=== PATIENT | female | born 1965 | race Caucasian/White ===

== ENCOUNTER 2019-04-01 20:40 | Emergency (ER) | payer OTHER ==
[~2019-04-01] VITALS: Ht 152.4 cm; Wt 63.7 kg
--- NOTE | 2019-04-01 20:54 | NUR ---
Patient brought back, pit orders placed by midlevel provider. Portable xray at bedside right now. Will assess when complete.
--- NOTE | 2019-04-01 20:58 | NUR ---
Phlebotomy at bedside, warm blanket provided. Will return on completion of lab draw.
[2019-04-01] MEDS ORDERED: ASPIRIN 81 MG TABLET CHEW PO ONE (21:00)
[2019-04-01 21:06] LABS: MEAN CORPUSCULAR HEMOGLOBIN 31.7 pg (27.0-34.8); MEAN CORPUSCULAR HGB CONC 33.8 g/dL (32.4-35.8); MEAN CORPUSCULAR VOLUME 93.7 fL (80-100); MEAN PLATELET VOLUME 8.1 fL (7.4-10.4); PLATELET COUNT 230 x10^3/uL (130-400); RED BLOOD COUNT 4.61 x10^6/uL (3.82-5.3); RED CELL DISTRIBUTION WIDTH 13.1 % (9.6-15.2)
[2019-04-01 21:07] VITALS: BP 109/77
--- NOTE | 2019-04-01 21:07 | NUR ---
RN to bedside, patient attached to pulsatile oxygen sensor, blood pressure cuff, and electrocardiagraphic leads. Vital signs within normal limits. Patient borderline sinus rhythm sinus bradycardia (59bpm) no ectopy. Patient is alert oriented. RN educated family at bedside plan of care. Awaiting lab results and chest xray results.
[2019-04-01 21:20] LABS: ALANINE AMINOTRANSFERASE 32 U/L (12-78); ALBUMIN 4.1 g/dL (3.4-5.0); ANION GAP 10 mmol/L (5-15); CALCIUM 9.2 mg/dL (8.5-10.1); CHLORIDE 107 mmol/L (98-107); CREATININE 0.93 mg/dL (0.55-1.02)
[2019-04-01 21:24] LABS: ALKALINE PHOSPHATASE 112 U/L (45-117); BILIRUBIN,TOTAL 0.5 mg/dL (0.2-1.0); TOTAL PROTEIN 7.5 g/dL (6.4-8.2); TROPONIN I < 0.015 ng/mL (0.000-0.045)
--- NOTE | 2019-04-01 21:29 | NUR ---
Patient back from imaging. Awaiting results.
[2019-04-01 21:39] LABS: MD YES
[2019-04-01 21:43] LABS: <PLATELET ESTIMATE> ADEQUATE; <PLT MORPHOLOGY> NORMAL PLT MORPH; <RBC MORPHOLOGY> NORMAL; EOS#(MANUAL) 0.07 x10^3/uL (0.0-0.4); EOS% (MANUAL) 1 % (1-7); LYMPH#(MANUAL) 4.36 x10^3/uL (1-3.4); LYMPHS% (MANUAL) 66 % (22-44); MONOS#(MANUAL) 0.13 x10^3/uL (0.3-2.7); MONOS% (MANUAL) 2 % (2-9); SEG#(MANUAL) 2.05 x10^3/uL (1.8-6.8); SEGS% (MANUAL) 31 % (42-75)
== END 2019-04-01 22:51 ==
LOC: ED 22:20
DX: K21.9 Gastro-esophageal reflux disease without esophagitis (principal); R07.89 Other chest pain
CPT/HCPCS: 36415; 71045; 80053; 84484; 85025; 93005; 99284